=== PATIENT | female | born 1970 | race Caucasian/White ===

== ENCOUNTER 2016-08-28 02:14 | Inpatient (IN) | payer OTHER ==
[~2016-08-28] VITALS: Ht 165.1 cm; Wt 86.8 kg
[~2016-08-28 02:14] MED LIST: BUPR-79 PO; MEDR150I IM
[2016-08-28] MEDS ORDERED: ONDANSETRON INJ 2 MG/ML 2 ML VIAL IV STA (02:49)
[2016-08-28] MEDS ORDERED: SODIUM CHLORIDE 0.9% 1000ML 1,000 ML IV STA (02:49)
[2016-08-28] MEDS ORDERED: SODIUM CHLORIDE 0.9% 500ML 500 ML IV STA (02:49)
[2016-08-28] MEDS ORDERED: MoRPHine SULFATE 4 MG/ML 1 ML CARP\\VIAL IV STA (02:49)
--- NOTE | 2016-08-28 02:57 | EMERGENCY ROOM VISIT NOTE ---
History Report prepared by [facility]: Arturo Juarez Under the Supervision of: Dr. Malu Bustamante M.D. First contact with patient: 02:34 Chief Complaint: ABDOMINAL PAIN Stated Complaint: STOMACH Nursing Triage Summary: abdominal pain that started around 1830 last evening after heavy lift. pt states she feels like she cannot take a deep breath, and "there is a hard lumb in the middle of my belly". History of Present Illness The patient is a 45 year old female who presents to the Emergency Room with complaints of persistent mid abdominal pain starting a few hours ago. She was doing some heavy lifting when she had an onset of her pain. She has worsening pain with breathing and movement. She has pain relief with certain positions. She denies any history of similar pain. She had [employer] parmesan for dinner yesterday. She denies any history of cholecystectomy. She is currently on control. She is a current smoker. She has a history of hernia. The patient denies fevers, chills, or any other complaints. Source of History: patient Onset: a few hours ago Position: abdomen (mid) Timing: other (persistent) Modifying Factors (Worsening): breathing, movement Modifying Factors (Relieving): other (with certain positions) Associated Symptoms: No chills, No fevers Review of Systems See HPI for pertinent positives & negatives. A total of 10 systems reviewed and were otherwise negative. Past Medical & Surgical Medical Problems: (1) Endometriosis (2) Pancreatitis (3) Tobacco Use Disorder Surgical Problems: (1) History of ovarian cystectomy Family History No significant family history Social History Smoking Status: Current Every Day Smoker Alcohol Use: occasionally Marital Status: Housing Status: lives with family Occupation Status: employed Current/Historical Medications Scheduled Bupropion (Wellbutrin Sr), 100 MG PO DAILY Medroxyprogesterone Acetate (C (Depo-Provera Contraceptiv), 1 ML IM Q3M Allergies Coded Allergies: No Known Allergies (Unverified , 08/28/16) Physical Exam Vital Signs Date Time Temp Pulse Resp B/P Pulse Ox O2 Delivery O2 Flow Rate FiO2 08/28/16 04:28 79 08/28/16 04:20 76 18 113/76 98 Room Air 08/28/16 02:17 36.6 99 20 125/85 99 Room Air Physical Exam Vital signs reviewed. General: Well-appearing, in no significant distress. HEENT: No scleral icterus, PERRLA, neck supple. Atraumatic. Cardiovascular: Regular rate and rhythm, no extra sounds. Pulmonary: Clear to auscultation bilaterally, normal work of breathing. Abdomen: Soft, tenderness to palpation in the epigastric area, positive guarding , nondistended, positive bowel sounds. Musculoskeletal: Atraumatic, no peripheral edema. Neurologic: Patient awake alert and oriented x 3 Skin: Warm, dry, no rash Medical Decision & Procedures ER Provider Diagnostic Interpretation: X-ray results as stated below per interpretation by me: CHEST X-RAY No focal infiltrate, no failure. US results as stated below per my review and radiologist interpretation: US RUQ Top normal caliber of the pancreatic duct without obvious obstructive cause. The inferior pole of the right kidney is obscured by overlying bowel gas. Remainder of examination is within normal limits. Radiologist: Santiago Orta MD Laboratory Results 08/28/16 03:00 Red Blood Count 4.36, Mean Corpuscular Volume 92.2, Mean Corpuscular Hemoglobin 32.1, Mean Corpuscular Hemoglobin Concent 34.8, Mean Platelet Volume 10.6, Neutrophils (%) (Auto) 65.9, Lymphocytes (%) (Auto) 22.6, Monocytes (%) (Auto) 9.9, Eosinophils (%) (Auto) 1.1, Basophils (%) (Auto) 0.3, Neutrophils # (Auto) 7.35, Lymphocytes # (Auto) 2.52, Monocytes # (Auto) 1.10, Eosinophils # (Auto) 0.12, Basophils # (Auto) 0.03 08/28/16 03:00 Test 08/28/16 03:00 08/28/16 03:09 08/28/16 04:08 White Blood Count 11.14 K/uL (4.8-10.8) Red Blood Count 4.36 M/uL (4.2-5.4) Hemoglobin 14.0 g/dL (12.0-16.0) Hematocrit 40.2 % (37-47) Mean Corpuscular Volume 92.2 fL (80-100) Mean Corpuscular Hemoglobin 32.1 pg (25-34) Mean Corpuscular Hemoglobin Concent 34.8 g/dl (32-36) Platelet Count 227 K/uL (130-400) Mean Platelet Volume 10.6 fL (7.4-10.4) Neutrophils (%) (Auto) 65.9 % Lymphocytes (%) (Auto) 22.6 % Monocytes (%) (Auto) 9.9 % Eosinophils (%) (Auto) 1.1 % Basophils (%) (Auto) 0.3 % Neutrophils # (Auto) 7.35 K/uL (1.4-6.5) Lymphocytes # (Auto) 2.52 K/uL (1.2-3.4) Monocytes # (Auto) 1.10 K/uL (0.11-0.59) Eosinophils # (Auto) 0.12 K/uL (0-0.5) Basophils # (Auto) 0.03 K/uL (0-0.2) RDW Standard Deviation 42.0 fL (36.4-46.3) RDW Coefficient of Variation 12.4 % (11.5-14.5) Immature Granulocyte % (Auto) 0.2 % Immature Granulocyte # (Auto) 0.02 K/uL (0.00-0.02) Prothrombin Time 9.7 SECONDS (9.0-12.0) Prothromb Time International Ratio 0.9 (0.9-1.1) Anion Gap 9.0 mmol/L (3-11) Est Creatinine Clear Calc Drug Dose 80.0 ml/min Estimated GFR () 79.8 Estimated GFR (Non- 68.8 BUN/Creatinine Ratio 11.0 (10-20) Calcium Level 8.8 mg/dl (8.5-10.1) Magnesium Level 2.3 mg/dl (1.8-2.4) Total Bilirubin 0.3 mg/dl (0.2-1) Direct Bilirubin < 0.1 mg/dl (0-0.2) Aspartate Amino Transf (AST/SGOT) 9 U/L (15-37) Alanine Aminotransferase (ALT/SGPT) 21 U/L (12-78) Alkaline Phosphatase 64 U/L (45-117) Total Protein 6.9 gm/dl (6.4-8.2) Albumin 3.8 gm/dl (3.4-5.0) Lipase 1761 U/L (73-393) Bedside Troponin I 0.000 ng/ml (0-0.045) Urine Color YELLOW Urine Appearance CLEAR (CLEAR) Urine pH 6.5 (4.5-7.5) Urine Specific [place] 1.003 (1.000-1.030) Urine Protein NEG (NEG) Urine Glucose (UA) NEG (NEG) Urine Ketones NEG (NEG) Urine Occult Blood NEG (NEG) Urine Nitrite NEG (NEG) Urine Bilirubin NEG (NEG) Urine Urobilinogen NEG (NEG) Urine Leukocyte Esterase NEG (NEG) Urine Test NEG (NEG) Laboratory results per my review. Medications Administered Medications (Trade) Dose Ordered Sig/Ericka Route Start Time Stop Time Status Last Admin Dose Admin Sodium Chloride 500 ml @ 999 mls/hr Q31M STAT IV 08/28/16 02:49 08/28/16 03:19 DC 08/28/16 02:49 999 MLS/HR Sodium Chloride (Nss 1000ml) 1,000 ml @ 125 mls/hr Q8H STAT IV 08/28/16 02:49 08/28/16 06:08 DC 08/28/16 04:08 125 MLS/HR Ondansetron HCl (Zofran Inj) 4 mg NOW STAT IV 08/28/16 02:49 08/28/16 02:52 DC 08/28/16 03:14 4 MG Morphine Sulfate (MoRPHine SULFATE INJ) 4 mg NOW STAT IV 08/28/16 02:49 08/28/16 02:52 DC 08/28/16 03:15 4 MG ECG Indication: abdominal pain Rate (beats per minute): 82 Rhythm: normal sinus Findings: no acute ischemic change, no ectopy ED Course 0234: Past medical records reviewed. The patient was evaluated in room A02. A complete history and physical examination was performed. 0249: Morphine Sulfate 4 mg IV, Zofran Inj IV, Sodium Chloride 1000 ml @ 125 mls /hr IV, Sodium Chloride 500 ml @ 999 mls/hr IV 0446: Upon reevaluation, the patient is resting comfortably. I discussed laboratory and radiographic results with her. She verbalized agreement of the treatment plan. I spoke with Dr. Gaines of the [facility]. The patient will be evaluated for further management and care. Medical Decision Differential diagnosis: Etiologies such as appendicitis, diverticulitis, PUD, biliary pathology, UTI, pancreatitis, obstruction, mesenteric ischemia, aortic pathology, infections, inflammatory bowel disease, renal colic, as well as others were entertained. This patient was evaluated and appeared to be in some discomfort. IV access was obtained and laboratory work was drawn. The patient was medicated with IV morphine and Zofran. She was hydrated with normal saline solution. Ultrasound of the right upper quadrant was performed and reveals a normal gallbladder with a dilated pancreatic duct. No obvious obstruction. Chest x-ray is clear to my interpretation. Patient's laboratory work reveals an elevated lipase of 1700. I did discuss the case with the hospitalist service. The patient reevaluated by Dr. Mora for further management. Consults Time Called: [phone] Consulting Physician: Dr. Gaines of the [facility] Returned Call: [phone] Gaines of the [facility]. Impression Primary Impression: Acute pancreatitis Scribe Attestation The scribe's documentation has been prepared under my direction and personally reviewed by me in its entirety. I confirm that the note above accurately reflects all work, treatment, procedures, and medical decision making performed by me. Departure Information Dispostion Being Evaluated By Hospitalist Referrals Juan Pablo M.D. (PCP) Patient Instructions My [facility]
[2016-08-28 03:16] LABS: BASO % 0.3 %; BASO ABS # 0.03 K/uL (0-0.2); COMPLETE YES; EOS % 1.1 %; HEMATOCRIT 40.2 % (37-47); IG% 0.2 %; LYMPH % 22.6 %; LYMPH ABS # 2.52 K/uL (1.2-3.4); MEAN CELL VOLUME 92.2 fL (80-100); MEAN CORPUSCULAR HEMOGLOBIN 32.1 pg (25-34); MEAN CORPUSCULAR HGB CONC 34.8 g/dl (32-36); MEAN PLATELET VOLUME 10.6 fL (7.4-10.4); MONO % 9.9 %; NEUT % 65.9 %; PLATELET COUNT 227 K/uL (130-400); RED BLOOD COUNT 4.36 M/uL (4.2-5.4); WHITE BLOOD COUNT 11.14 K/uL (4.8-10.8)
[2016-08-28 03:33] LABS: ALT/SGPT 21 U/L (12-78); AST/SGOT 9 U/L (15-37); BLOOD UREA NITROGEN 11 mg/dl (7-18); CALCIUM 8.8 mg/dl (8.5-10.1); CARBON DIOXIDE 25 mmol/L (21-32); CHLORIDE 109 mmol/L (98-107); CREATININE 0.99 mg/dl (0.60-1.20); GLUCOSE 119 mg/dl (70-99); MAGNESIUM 2.3 mg/dl (1.8-2.4); POTASSIUM 3.8 mmol/L (3.5-5.1); SODIUM 143 mmol/L (136-145)
[2016-08-28 03:38] LABS: ALKALINE PHOSPHATASE 64 U/L (45-117)
[2016-08-28 04:21] LABS: URINE APPEARANCE CLEAR (CLEAR); URINE BILIRUBIN NEG (NEG); URINE COLOR YELLOW; URINE NITRITE NEG (NEG); URINE PH 6.5 (4.5-7.5); URINE SPECIFIC GRAVITY 1.003 (1.000-1.030); UROBILINOGEN NEG (NEG); ZZUR CULT IF INDIC CLEAN CATCH NO
[2016-08-28 04:22] LABS: PREG INTERNAL NEGATIVE QC NEG CLEAR BACKGROUND; PREG INTERNAL POSITIVE QC POS CONTROL LINE
[2016-08-28 04:27] LABS: MANUAL MICROSCOPIC REQUIRED? NO; REVIEW REQ? NO
[2016-08-28] MEDS ORDERED: BUPR100T8 PO (05:25)
[2016-08-28] MEDS ORDERED: DPPRI400 INJ (05:26)
[2016-08-28] MEDS ORDERED: ACETAMINOPHEN 325 MG TAB PO PRN (05:45)
[2016-08-28] MEDS ORDERED: MedroxyPROGESTERone ACETATE 150 MG/ML 1 ML VIAL IM SCH (05:45)
[2016-08-28] MEDS ORDERED: MoRPHine SULFATE 4 MG/ML 1 ML CARP\\VIAL IV PRN (05:45)
[2016-08-28] MEDS ORDERED: ONDANSETRON INJ 2 MG/ML 2 ML VIAL IV PRN (05:45)
[2016-08-28] MEDS ORDERED: LORAZEPAM 2 MG/ML 1 ML VIAL IV PRN (05:45)
[2016-08-28] MEDS ORDERED: KETOROLAC TROMETHAMINE 30 MG/ML VIAL IV PRN (05:45)
[2016-08-28 06:00] VITALS: BP 128/83; PULSE 81; TEMP 36.8; O2SAT 97; Ht 165.1 cm; Wt 86.8 kg
[2016-08-28] MEDS ORDERED: IV FLUIDS COMPLETED PRN (06:00)
[2016-08-28] MEDS: LACTATED RINGER'S 1000ML 1,000 ML IV SCH ×3 (06:19→16:11)
[2016-08-28 06:34] LABS: INR 0.9 (0.9-1.1); PROTHROMBIN TIME (PATIENT) 9.7 SECONDS (9.0-12.0)
--- NOTE | 2016-08-28 06:56 | HISTORY & PHYSICAL EXAMINATION ---
DATE OF ADMISSION: 08/28/2016 PRIMARY CARE DOCTOR: Dr. Prince Gallo obtained from px and records. CHIEF COMPLAINT: Abdominal pain. HISTORY OF PRESENT ILLNESS: Medical history is significant for endometriosis and ongoing tobacco abuse. Patient noted achy midepigastric pain last night. She was just packing at home. No chest pain, no shortness of breath. No fever, no chills, no previous episodes. Parm chicken for dinner. some alcohol intake the last weekend. (two bottles of beer) MEDICAL HISTORY: As above. SURGERIES: Gynecologic procedures. HOME MEDICATIONS: Include; Wellbutrin and Depo-Provera. ALLERGIES: No known drug allergies. FAMILY HISTORY: Heart disease. PERSONAL AND SOCIAL HISTORY: Half pack daily. No chronic intake of alcoholic beverages. Insurance work REVIEW OF SYSTEMS: As per HPI, all other ROS negative. PHYSICAL EXAMINATION: VITAL SIGNS: Blood pressure was noted to be 125/80, pulse rate 99, RR 20, temp 36.6, sats 98 on room air. GENERAL: Noted to be obese, slightly uncomfortable and anxious, no respiratory distress. SKIN: Normal color. HEENT: [place] palpebral conjunctivae. Dry mucosa. NECK: Short neck. LUNGS: Clear to auscultation. HEART: Regular rate and rhythm. ABDOMEN: Epigastric tenderness. EXTREMITIES: No edema. no tenderness NEUROLOGIC: No gross focality. LABORATORIES: Hemoglobin was noted to be 14, hematocrit 40, white cell count platelets 227. Sodium 140, potassium 3.8, chloride 109, CO2 25, BUN 11, creatinine 0.9 and glucose 119. LFTs normal, lipase 1761. Gallbladder ultrasound initial read showed top normal caliber pancreatic duct without obstruction. ASSESSMENT: 1. Acute pancreatitis unclear precipitant. 2. Ongoing tobacco abuse. PLAN: F analgesia, bowel rest, IV fluids. GI consult, pancreatitis. Nicotine patch. DVT prophylaxis, Lovenox subQ. Full code. MTDD
--- NOTE | 2016-08-28 07:33 | DIAGNOSTIC IMAGING REPORT ---
[facility] ultrasound GALLBLADDER-ABD LIMITED CLINICAL HISTORY: epigastric pain TECHNIQUE: Ultrasound COMPARISON STUDY: None. FINDINGS: Normal gallbladder. Common bile duct 4 mm. Liver pancreas and right kidney are unremarkable. IMPRESSION: Normal study Electronically signed by: Blayne Davenport M.D. 08/28/2016 7:31 AM Dictated Date/Time: 08/28/2016 7:30 AM
--- NOTE | 2016-08-28 07:33 | DIAGNOSTIC IMAGING REPORT ---
CHEST ONE VIEW PORTABLE CLINICAL HISTORY: epigastric pain pain COMPARISON STUDY: No previous studies for comparison. FINDINGS: The bones soft tissues and hemidiaphragms are normal. The cardiomediastinal silhouette is normal. The lungs are clear. The pulmonary vasculature is normal. IMPRESSION: Negative chest. Electronically signed by: Blanye Davenport M.D. 08/28/2016 7:31 AM Dictated Date/Time: 08/28/2016 7:31 AM
[2016-08-28] MEDS: ENOXAPARIN 40 MG/0.4 ML SYR SQ SCH (09:00)
[2016-08-28] MEDS: NICOTINE 14 MG/24 HR TDSY TD SCH (10:07)
[2016-08-28] MEDS: BuPROPion SR 100 MG TABCR PO SCH (10:07)
[2016-08-28 11:21] VITALS: BP 95/62; PULSE 66; TEMP 36.9; O2SAT 95
--- NOTE | 2016-08-28 11:26 | Gastrointestinal Consultation ---
Gastrointestinal Consultation Date of Consultation: Aug 28, 2016 Attending Physician: Kris Willoughby Consulting Physician: Jann Ly Reason for Consultation: Pancreatitis History of Present Illness Patient is a 45 year old female w PMHx of endometriosis, tobacco abuse, who presented to ED tube fitter w c/o epigastric area abd pain. She had 1/2 chicken parmesan meal at [employer] last night. Went to bed and can't seem to get comfortable, having epigastric area abd pain w mild nausea and also some back ache. She denies any fever, chills, vomiting. Denies any changes in BM habits. She eventually went to ED because of the pain. On eval, VS stable, CBC showed mild leukocytosis w WBC 11. H/H 14/40. No coagulopathy. CMP unremarkable including normal LFTs but her Lipase was elevated at 1761. She had RUQ u/s which showed normal gallbladder w CBD 4mm. CXR normal. She is currently admitted for pancreatitis, had been NPO and given IVF fluid support. She is a smoker 1/2 PPD, states ETOH use about 2x a month. May have >3 drinks per one sitting. Last ETOH intake last Thursday - 5 coronas in 8 hours. Past Medical/Surgical History Medical Problems: (1) Acute pancreatitis Status: Acute Past Surgical History: Lap surgery for endometriosis Valvular lesion bx Appendectomy Family History No significant family history Social History Smoking Status: Current Every Day Smoker Alcohol Use: occasionally Marital Status: Housing Status: lives with family Occupation Status: employed Allergies Coded Allergies: No Known Allergies (Unverified , 08/28/16) Current Medications Home Meds and Scripts Medications Dose Route/Sig Max Daily Dose Days Date Category Wellbutrin Sr (Bupropion HCl) 100 Mg Ertab 100 Mg PO DAILY 08/28/16 Reported Depo-Provera Contraceptiv (Medroxyprogesterone Acetate (C) 150 Mg/Ml Inj 1 Ml IM Q3M 04/03/16 Reported Review of Systems Constitutional: No chills, No fever Respiratory: No cough, No shortness of breath Cardiac: No chest pain Abdomen: + pain (epigastric, better per pt), No diarrhea, No nausea, No vomiting Skin: No itch, No jaundice, No rash Physical Exam Date Time Temp Pulse Resp B/P Pulse Ox O2 Delivery O2 Flow Rate FiO2 08/28/16 08:00 Room Air 08/28/16 06:00 36.8 81 18 128/83 97 Room Air 08/28/16 05:55 78 20 113/76 98 08/28/16 04:28 79 08/28/16 04:20 76 18 113/76 98 Room Air 08/28/16 02:17 36.6 99 20 125/85 99 Room Air General Appearance: WD/WN, no apparent distress, + obese Eyes: normal inspection, PERRL, EOMI Neck: supple, no JVD, trachea midline Respiratory/Chest: normal breath sounds, no respiratory distress, no accessory muscle use Cardiovascular: regular rate, rhythm, no gallop, no murmur Abdomen: soft, + abnormal bowel sounds (hypoactive ), + tenderness (mild TTP over epigastric ) Extremities: normal inspection, no pedal edema, no calf tenderness Neurologic/Psych: alert, normal mood/affect, oriented x 3 Skin: normal color, no jaundice, no rash Laboratory Results Last 24 Hours Test 08/28/16 03:00 08/28/16 03:09 08/28/16 04:08 White Blood Count 11.14 K/uL Red Blood Count 4.36 M/uL Hemoglobin 14.0 g/dL Hematocrit 40.2 % Mean Corpuscular Volume 92.2 fL Mean Corpuscular Hemoglobin 32.1 pg Mean Corpuscular Hemoglobin Concent 34.8 g/dl Platelet Count 227 K/uL Mean Platelet Volume 10.6 fL Neutrophils (%) (Auto) 65.9 % Lymphocytes (%) (Auto) 22.6 % Monocytes (%) (Auto) 9.9 % Eosinophils (%) (Auto) 1.1 % Basophils (%) (Auto) 0.3 % Neutrophils # (Auto) 7.35 K/uL Lymphocytes # (Auto) 2.52 K/uL Monocytes # (Auto) 1.10 K/uL Eosinophils # (Auto) 0.12 K/uL Basophils # (Auto) 0.03 K/uL RDW Standard Deviation 42.0 fL RDW Coefficient of Variation 12.4 % Immature Granulocyte % (Auto) 0.2 % Immature Granulocyte # (Auto) 0.02 K/uL Prothrombin Time 9.7 SECONDS Prothromb Time International Ratio 0.9 Sodium Level 143 mmol/L Potassium Level 3.8 mmol/L Chloride Level 109 mmol/L Carbon Dioxide Level 25 mmol/L Anion Gap 9.0 mmol/L Blood Urea Nitrogen 11 mg/dl Creatinine 0.99 mg/dl Est Creatinine Clear Calc Drug Dose 80.0 ml/min Estimated GFR () 79.8 Estimated GFR (Non- 68.8 BUN/Creatinine Ratio 11.0 Random Glucose 119 mg/dl Calcium Level 8.8 mg/dl Magnesium Level 2.3 mg/dl Total Bilirubin 0.3 mg/dl Direct Bilirubin < 0.1 mg/dl Aspartate Amino Transf (AST/SGOT) 9 U/L Alanine Aminotransferase (ALT/SGPT) 21 U/L Alkaline Phosphatase 64 U/L Total Protein 6.9 gm/dl Albumin 3.8 gm/dl Lipase 1761 U/L Bedside Troponin I 0.000 ng/ml Urine Color YELLOW Urine Appearance CLEAR Urine pH 6.5 Urine Specific [place] 1.003 Urine Protein NEG Urine Glucose (UA) NEG Urine Ketones NEG Urine Occult Blood NEG Urine Nitrite NEG Urine Bilirubin NEG Urine Urobilinogen NEG Urine Leukocyte Esterase NEG Urine Test NEG Impression Patient is a 45 year old female w epigastric and mid back pain, mild nausea, Lipase >1700; admitted for pancreatitis. Risk factors: tobacco use, ETOH use but hasn't had a drink since Thursday. Plan - LR @ 200ml/hr - Start CL diet; may advance to [place] diet by tomorrow if tolerating well - Advised to quit smoking, avoid ETOH at least for next 2-3 weeks then advised to not have >1 drink per sitting. - Will consider EUS eval in 4-6 weeks; will discuss w Dr. Ly. -> will schedule outpt EUS in 4-6 week's time. - Symptomatic management otherwise. I have personally seen and examined the patient with ELVIRA Yates. Her note reflects my exam and findings. I agree with her impression and plan. Timing of ETOH not c/w ETOH pancreatitis. Maybe gallstone panc. Ultrasound can miss some stones. Consider out patient EUS. Jann Ly M.D.
[2016-08-28 15:15] VITALS: BP 109/70; PULSE 70; TEMP 36.8; O2SAT 96
[2016-08-28] MEDS: PANTOprazole SOD 40 MG TAB PO SCH (20:46)
[2016-08-28] MEDS ORDERED: NURSING DECISION MEDICATION ORDER SCH (21:00)
[2016-08-28 23:56] VITALS: BP 96/59; PULSE 75; TEMP 37; O2SAT 96
[2016-08-29 07:06] LABS: BASO % 0.3 %; BASO ABS # 0.03 K/uL (0-0.2); COMPLETE YES; EOS % 1.7 %; HEMATOCRIT 38.6 % (37-47); IG% 0.2 %; LYMPH % 21.1 %; LYMPH ABS # 2.41 K/uL (1.2-3.4); MEAN CELL VOLUME 93.2 fL (80-100); MEAN CORPUSCULAR HEMOGLOBIN 31.2 pg (25-34); MEAN CORPUSCULAR HGB CONC 33.4 g/dl (32-36); MEAN PLATELET VOLUME 10.4 fL (7.4-10.4); MONO % 12.6 %; NEUT % 64.1 %; PLATELET COUNT 199 K/uL (130-400); RED BLOOD COUNT 4.14 M/uL (4.2-5.4); WHITE BLOOD COUNT 11.42 K/uL (4.8-10.8)
[2016-08-29 07:56] VITALS: BP 118/74; PULSE 76; TEMP 36.6; O2SAT 96
[2016-08-29 08:09] LABS: ALB/GLOB RATIO 1.2 (0.9-2); BUN/CREATININE RATIO 5.8 (10-20); CALCIUM 8.7 mg/dl (8.5-10.1); CHOLESTEROL/HDL RATIO 4.2; CREATININE 0.9 mg/dl (0.60-1.20); POTASSIUM 3.7 mmol/L (3.5-5.1)
[2016-08-29] MEDS: BuPROPion SR 100 MG TABCR PO SCH (08:56)
[2016-08-29] MEDS: PANTOprazole SOD 40 MG TAB PO SCH ×2 (08:56→08:57)
[2016-08-29] MEDS: ENOXAPARIN 40 MG/0.4 ML SYR SQ SCH (08:59)
[2016-08-29] MEDS: NICOTINE 14 MG/24 HR TDSY TD SCH (08:59)
--- NOTE | 2016-08-29 09:39 | Progress Note ---
Internal Med Progress Note Date of Service: Aug 29, 2016. Provider Documentation: SUBJECTIVE: The patient was seen and examined Still has some epigastric pain 08/28 No nausea and or vomiting Pain is completely resolved Ready to go home -does not want to try regular food before discharge OBJECTIVE: Vital Signs-as noted below Exam: General-No distress at rest Eyes-normal ENT-normal Neck-supple Lungs-Clear to ausucltate bilaterally Heart-Regular Abdomen-Benign,nontender epigastrium Bowel sound present Extremities-No edema Neuro-[id number] Lab data as noted below. ASSESSMENT & PLAN: Acute pancreatitis Unclear precipitant. Smoker and social alcohol consumption No medications Analgesia, bowel rest, IV fluids. Clinically much better 08/29/16 Appreciate GI evaluation Clears started and tolerated Wants to go home and follow the instructions Discussed about the potential recurrence of the symptoms Will come back if that happens Lipase normalized Ongoing tobacco abuse. Advised to quit Nicotine patch. DVT prophylaxis, Lovenox subQ. Full code. Discussed with the GI Can be discharge home Vital Signs: Date Time Temp Pulse Resp B/P Pulse Ox O2 Delivery O2 Flow Rate FiO2 08/29/16 07:56 36.6 76 16 118/74 96 08/29/16 07:54 Room Air 08/29/16 00:00 Room Air 08/28/16 23:56 37.0 75 20 96/59 96 Room Air 08/28/16 17:48 Room Air 08/28/16 15:15 36.8 70 16 109/70 96 Room Air 08/28/16 11:21 36.9 66 18 95/62 95 Room Air Lab Results: Results Past 24 Hours Test 08/29/16 06:16 Range/Units White Blood Count 11.42 4.8-10.8 K/uL Red Blood Count 4.14 4.2-5.4 M/uL Hemoglobin 12.9 12.0-16.0 g/dL Hematocrit 38.6 37-47 % Mean Corpuscular Volume 93.2 80-100 fL Mean Corpuscular Hemoglobin 31.2 25-34 pg Mean Corpuscular Hemoglobin Concent 33.4 32-36 g/dl Platelet Count 199 130-400 K/uL Mean Platelet Volume 10.4 7.4-10.4 fL Neutrophils (%) (Auto) 64.1 % Lymphocytes (%) (Auto) 21.1 % Monocytes (%) (Auto) 12.6 % Eosinophils (%) (Auto) 1.7 % Basophils (%) (Auto) 0.3 % Neutrophils # (Auto) 7.33 1.4-6.5 K/uL Lymphocytes # (Auto) 2.41 1.2-3.4 K/uL Monocytes # (Auto) 1.44 0.11-0.59 K/uL Eosinophils # (Auto) 0.19 0-0.5 K/uL Basophils # (Auto) 0.03 0-0.2 K/uL RDW Standard Deviation 42.1 36.4-46.3 fL RDW Coefficient of Variation 12.4 11.5-14.5 % Immature Granulocyte % (Auto) 0.2 % Immature Granulocyte # (Auto) 0.02 0.00-0.02 K/uL Sodium Level 144 136-145 mmol/L Potassium Level 3.7 3.5-5.1 mmol/L Chloride Level 109 98-107 mmol/L Carbon Dioxide Level 28 21-32 mmol/L Anion Gap 7.0 3-11 mmol/L Blood Urea Nitrogen 5 7-18 mg/dl Creatinine 0.90 0.60-1.20 mg/dl Est Creatinine Clear Calc Drug Dose 85.9 ml/min Estimated GFR () 89.5 Estimated GFR (Non- 77.2 BUN/Creatinine Ratio 5.8 10-20 Random Glucose 93 70-99 mg/dl Calcium Level 8.7 8.5-10.1 mg/dl Total Bilirubin 0.6 0.2-1 mg/dl Aspartate Amino Transf (AST/SGOT) 7 15-37 U/L Alanine Aminotransferase (ALT/SGPT) 18 12-78 U/L Alkaline Phosphatase 62 45-117 U/L Total Protein 6.3 6.4-8.2 gm/dl Albumin 3.4 3.4-5.0 gm/dl Globulin 2.9 2.5-4.0 gm/dl Albumin/Globulin Ratio 1.2 0.9-2 Triglycerides Level 121 0-150 mg/dl Cholesterol Level 175 0-200 mg/dl HDL Cholesterol 42 mg/dl LDL Cholesterol, Calculated 109 mg/dl VLDL Cholesterol, Calculated 24 mg/dl Cholesterol/HDL Ratio 4.2 Lipase 322 73-393 U/L
[2016-08-29] MEDS ORDERED: NCDT14 TD (09:48)
--- NOTE | 2016-08-29 09:50 | Discharge Instructions ---
Discharge Instructions Date of Service Aug 29, 2016. Admission Reason for Admission: Pancreatitis Discharge Discharge Diagnosis / Problem: Acute Pancreatitis Discharge Goals Goal(s): Prevent Disease Progression Activity Recommendations Activity Limitations: resume your previous activity . Instructions / Follow-Up Instructions / Follow-Up Dr Pablo on 09/04/16 at 3:05PM Current Hospital Diet Patient's current hospital diet: Full Liquid Diet Discharge Diet Recommended Diet: Regular Diet Pending Studies Studies pending at discharge: no Laboratory Results Lipid Panel Test 08/29/16 06:16 Range/Units Triglycerides Level 121 0-150 mg/dl Cholesterol Level 175 0-200 mg/dl HDL Cholesterol 42 mg/dl Cholesterol/HDL Ratio 4.2 LDL Cholesterol, Calculated 109 mg/dl Medical Emergencies . Who to Call and When: Medical Emergencies: If at any time you feel your situation is an emergency, please call 911 immediately. . Non-Emergent Contact Non-Emergency issues call your: Primary Care Provider . Past History Medical & Surgical History: (1) Acute pancreatitis (2) Endometriosis . "Provider Documentation" section prepared by Kris Willoughby. . VTE Core Measure Inpt VTE Proph given/why not?: Enoxaparin (Lovenox)SQ
--- NOTE | 2016-08-29 10:26 | Gastroenterology Progress Note ---
Progress Note Date of Service: Aug 29, 2016 Subjective Pt evaluation today including: conversation w/ patient, physical exam, chart review, lab review, review of inpatient medication list Pt dressed in street clothes, sitting at edge of bed, desires to be discharged this AM. She reported trying some [place] diet last night and had abd pain, no abd pain, n/v this AM w bland liquid diet. Passing flatus but no BMs. Review of Systems Constitutional: No chills, No fever Respiratory: No cough, No shortness of breath Cardiac: No chest pain Abdomen: + see HPI, No nausea, No pain, No vomiting Medications Current Inpatient Medications Medications (Trade) Dose Ordered Sig/Ericka Route Start Time Stop Time Status Last Admin Dose Admin Enoxaparin Sodium (Lovenox Inj) 40 mg Q24H SQ 08/28/16 09:00 09/27/16 08:59 Acetaminophen (Tylenol Tab) 650 mg Q4H PRN PO 08/28/16 05:45 09/27/16 05:44 Ketorolac Tromethamine (Toradol Inj) 30 mg Q6H PRN IV 08/28/16 05:45 09/02/16 05:44 08/28/16 19:00 30 MG Ondansetron HCl (Zofran Inj) 4 mg Q6H PRN IV 08/28/16 05:45 09/27/16 05:44 Lorazepam (Ativan Inj) 0.5 mg Q4H PRN IV 08/28/16 05:45 09/27/16 05:44 Nicotine (Nicoderm Cq 14MG Patch) 1 patch QAM TD 08/28/16 09:00 09/27/16 08:59 08/28/16 10:07 1 PATCH Morphine Sulfate (MoRPHine SULFATE INJ) 4 mg Q3H PRN IV 08/28/16 05:45 09/11/16 05:44 Miscellaneous (Remove Nicoderm Patch) 1 ea HS N/A 08/28/16 21:00 09/27/16 20:59 08/28/16 20:46 1 EA Bupropion HCl (Wellbutrin-Sr Tab) 100 mg DAILY PO 08/28/16 09:00 09/27/16 08:59 08/29/16 08:56 100 MG Miscellaneous (Iv Fluids Completed) 1 ea PRN PRN N/A 08/28/16 06:00 08/28/17 05:59 Pantoprazole Sodium (Protonix Tab) 40 mg BID PO 08/28/16 21:00 09/27/16 20:59 08/29/16 08:57 40 MG Objective Vital Signs Date Time Temp Pulse Resp B/P Pulse Ox O2 Delivery O2 Flow Rate FiO2 08/29/16 07:56 36.6 76 16 118/74 96 08/29/16 07:54 Room Air 08/29/16 00:00 Room Air 08/28/16 23:56 37.0 75 20 96/59 96 Room Air 08/28/16 17:48 Room Air 08/28/16 15:15 36.8 70 16 109/70 96 Room Air 08/28/16 11:21 36.9 66 18 95/62 95 Room Air Physical Exam General Appearance: WD/WN, no apparent distress, + obese Eyes: normal inspection, PERRL, EOMI Neck: supple, no JVD, trachea midline Respiratory/Chest: normal breath sounds, no respiratory distress, no accessory muscle use Cardiovascular: regular rate, rhythm, no gallop, no murmur Abdomen: normal bowel sounds, non tender, soft Extremities: normal inspection, no pedal edema, no calf tenderness Neurologic/Psych: alert, normal mood/affect, oriented x 3 Skin: normal color, no jaundice, no rash Laboratory Results Last 24 Hours Test 08/29/16 06:16 White Blood Count 11.42 K/uL Red Blood Count 4.14 M/uL Hemoglobin 12.9 g/dL Hematocrit 38.6 % Mean Corpuscular Volume 93.2 fL Mean Corpuscular Hemoglobin 31.2 pg Mean Corpuscular Hemoglobin Concent 33.4 g/dl Platelet Count 199 K/uL Mean Platelet Volume 10.4 fL Neutrophils (%) (Auto) 64.1 % Lymphocytes (%) (Auto) 21.1 % Monocytes (%) (Auto) 12.6 % Eosinophils (%) (Auto) 1.7 % Basophils (%) (Auto) 0.3 % Neutrophils # (Auto) 7.33 K/uL Lymphocytes # (Auto) 2.41 K/uL Monocytes # (Auto) 1.44 K/uL Eosinophils # (Auto) 0.19 K/uL Basophils # (Auto) 0.03 K/uL RDW Standard Deviation 42.1 fL RDW Coefficient of Variation 12.4 % Immature Granulocyte % (Auto) 0.2 % Immature Granulocyte # (Auto) 0.02 K/uL Sodium Level 144 mmol/L Potassium Level 3.7 mmol/L Chloride Level 109 mmol/L Carbon Dioxide Level 28 mmol/L Anion Gap 7.0 mmol/L Blood Urea Nitrogen 5 mg/dl Creatinine 0.90 mg/dl Est Creatinine Clear Calc Drug Dose 85.9 ml/min Estimated GFR () 89.5 Estimated GFR (Non- 77.2 BUN/Creatinine Ratio 5.8 Random Glucose 93 mg/dl Calcium Level 8.7 mg/dl Total Bilirubin 0.6 mg/dl Aspartate Amino Transf (AST/SGOT) 7 U/L Alanine Aminotransferase (ALT/SGPT) 18 U/L Alkaline Phosphatase 62 U/L Total Protein 6.3 gm/dl Albumin 3.4 gm/dl Globulin 2.9 gm/dl Albumin/Globulin Ratio 1.2 Triglycerides Level 121 mg/dl Cholesterol Level 175 mg/dl HDL Cholesterol 42 mg/dl LDL Cholesterol, Calculated 109 mg/dl VLDL Cholesterol, Calculated 24 mg/dl Cholesterol/HDL Ratio 4.2 Lipase 322 U/L Assessment and Plan Patient is a 45 year old female w epigastric and mid back pain, mild nausea, Lipase >1700; admitted for pancreatitis. Risk factors: tobacco use, ETOH use but hasn't had a drink since Thursday. LFTs continue to be normal. Lipase down to 322 from 1761. She had some abd pain last night w diet but this AM no more pain, n/v. She desires to be DC'd home. Plan - OK for DC from GI standpoint. Recommend diet advancement from FL slowly to low fat diet. - Advised to quit smoking, avoid ETOH at least for next 2-3 weeks then advised to not have >1 drink per sitting. - Outpt [facility] in 4-6 week's time; will help arrange for appt.
[2016-08-29 11:01] VITALS: BP 118/74; PULSE 76; TEMP 36.6; O2SAT 96
--- NOTE | 2016-09-01 18:15 | Discharge Summary ---
Discharge Summary Date of Service Sep 01, 2016. Discharge Summary Admission Date: Aug 28, 2016 at 05:15 Discharge Date: Aug 29, 2016 Discharge Disposition: Home Principal Diagnosis: Acute Pancreatitis Secondary Diagnoses/Problems: Please see H&P and Hospital Progress note Consultations: GI Medication Reconciliation New Medications: Nicotine (Nicotine) 1 Patch Tdsy 14 PATCH TD QAM for 30 Days, #30 Continued Medications: Bupropion (Wellbutrin Sr) 100 Mg Ertab 100 MG PO DAILY, TAB Medroxyprogesterone Acetate (C (Depo-Provera Contraceptiv) 150 Mg/Ml Inj 1 ML IM Q3M Admission Information HPI (per Admitting provider): DATE OF ADMISSION: 08/28/2016 PRIMARY CARE DOCTOR: Dr. Prince Gallo obtained from px and records. CHIEF COMPLAINT: Abdominal pain. HISTORY OF PRESENT ILLNESS: Medical history is significant for endometriosis and ongoing tobacco abuse. Patient noted achy midepigastric pain last night. She was just packing at home. No chest pain, no shortness of breath. No fever, no chills, no previous episodes. Parm chicken for dinner. some alcohol intake the last weekend. (two bottles of beer) MEDICAL HISTORY: As above. SURGERIES: Gynecologic procedures. HOME MEDICATIONS: Include; Wellbutrin and Depo-Provera. ALLERGIES: No known drug allergies. FAMILY HISTORY: Heart disease. PERSONAL AND SOCIAL HISTORY: Half pack daily. No chronic intake of alcoholic beverages. Insurance work REVIEW OF SYSTEMS: As per HPI, all other ROS negative. PHYSICAL EXAMINATION: VITAL SIGNS: Blood pressure was noted to be 125/80, pulse rate 99, RR 20, temp 36.6, sats 98 on room air. GENERAL: Noted to be obese, slightly uncomfortable and anxious, no respiratory distress. SKIN: Normal color. HEENT: [place] palpebral conjunctivae. Dry mucosa. NECK: Short neck. LUNGS: Clear to auscultation. HEART: Regular rate and rhythm. ABDOMEN: Epigastric tenderness. EXTREMITIES: No edema. no tenderness NEUROLOGIC: No gross focality. LABORATORIES: Hemoglobin was noted to be 14, hematocrit 40, white cell count platelets 227. Sodium 140, potassium 3.8, chloride 109, CO2 25, BUN 11, creatinine 0.9 and glucose 119. LFTs normal, lipase 1761. Gallbladder ultrasound initial read showed top normal caliber pancreatic duct without obstruction. ASSESSMENT: 1. Acute pancreatitis unclear precipitant. 2. Ongoing tobacco abuse. PLAN: GMF analgesia, bowel rest, IV fluids. GI consult, pancreatitis. Nicotine patch. DVT prophylaxis, Lovenox subQ. Full code. Dictated: 08/28/16 0539 Transcribed: 08/28/16 0654 <Electronically signed by Vinh Gaines M.D.> Signed: 08/28/16 1043 Hospital Course Acute pancreatitis Unclear precipitant. Smoker and social alcohol consumption No medications Analgesia, bowel rest, IV fluids. Clinically much better 08/29/16 Appreciate GI evaluation Clears started and tolerated Wants to go home and follow the instructions Discussed about the potential recurrence of the symptoms Will come back if that happens Lipase normalized Ongoing tobacco abuse. Advised to quit Nicotine patch. DVT prophylaxis, Lovenox subQ. Full code. Discussed with the GI Can be discharge home Total time spent on discharge = 35 minutes This includes examination of the patient, discharge planning, medication reconciliation, and communication with other providers. Discharge Instructions Date of Service Aug 29, 2016. Admission Reason for Admission: Pancreatitis Discharge Discharge Diagnosis / Problem: Acute Pancreatitis Discharge Goals Goal(s): Prevent Disease Progression Activity Recommendations Activity Limitations: resume your previous activity . Instructions / Follow-Up Instructions / Follow-Up Dr Pablo on 09/04/16 at 3:05PM Current Hospital Diet Patient's current hospital diet: Full Liquid Diet Discharge Diet Recommended Diet: Regular Diet Pending Studies Studies pending at discharge: no Laboratory Results Lipid Panel Test 08/29/16 06:16 Range/Units Triglycerides Level 121 0-150 mg/dl Cholesterol Level 175 0-200 mg/dl HDL Cholesterol 42 mg/dl Cholesterol/HDL Ratio 4.2 LDL Cholesterol, Calculated 109 mg/dl Medical Emergencies . Who to Call and When: Medical Emergencies: If at any time you feel your situation is an emergency, please call 911 immediately. . Non-Emergent Contact Non-Emergency issues call your: Primary Care Provider . Past History Medical & Surgical History: (1) Acute pancreatitis (2) Endometriosis . "Provider Documentation" section prepared by Kris Willoughby. . VTE Core Measure Inpt VTE Proph given/why not?: Enoxaparin (Lovenox)SQ <Electronically signed by Kris Willoughby M.D.> Signed: 08/29/16 0950 Signed: Additional Copies To Juan Pablo M.D.
== END 2016-08-29 11:30 | disposition home or self-care (01) | DRG 440 ==
LOC: ENRESERVDT → ENRESERVTM → C.EDB 02:15 → C.MED 05:15
PROVIDERS: ADMIT Internal Medicine; ATTEND Internal Medicine
DX: K85.90 Acute pancreatitis without necrosis or infection, unspecified (principal); F17.210 Nicotine dependence, cigarettes, uncomplicated; Z79.3 Long term (current) use of hormonal contraceptives; Z79.899 Other long term (current) drug therapy

== ENCOUNTER → 2017-02-13 | Outpatient (CLI) | payer OTHER ==
[~2017-02-13] MED LIST changes: -BUPR-79 PO; +BUPR100T8 PO; +NCDT14 TD
== END | disposition home or self-care (01) ==
LOC: C.PAPS 14:20
PROVIDERS: ATTEND Obstetrics & Gynecology
DX: Z12.4 Encounter for screening for malignant neoplasm of cervix (principal)

== ENCOUNTER → 2017-02-13 | Outpatient (CLI) | payer OTHER | END | disposition home or self-care (01) | LOC: C.LAB1850 10:01 | PROVIDERS: ATTEND Obstetrics & Gynecology | DX: N91.2 Amenorrhea, unspecified (principal) ==